=== PATIENT | female | born 1990 | race African-American/Black ===

== ENCOUNTER 2021-03-28 14:21 | Outpatient (CLI) | payer OTHER, SELFPAY ==
--- NOTE | 2021-03-28 | ECG_ITS ---
Measurements Intervals [place] Rate: 75 P: 54 MS: 185 QRS: 32 QRSD: 78 T: 23 QT: 358 QTc: 400 Interpretive Statements SINUS RHYTHM BASELINE ARTIFACT- II, III, AVF NORMAL ECG Electronically Signed On 03-28-2021 16:29:27 CDT by Jose G Orantes D.O.
== END 2021-03-28 14:22 | disposition home or self-care (01) ==
LOC: ANHCARD 14:24
PROVIDERS: PCP Physician Assistant; Visit Provider Physician Assistant
DX: Z01.810 Encounter for preprocedural cardiovascular examination (principal)
CPT/HCPCS: 93005